=== PATIENT | female | born 1990 | race Two or more races ===

== ENCOUNTER 2024-05-22 12:31 | Emergency (ER) | payer MEDICAID, OTHER ==
[~2024-05-22] VITALS: Ht 160 cm; Wt 72.0 kg
--- NOTE | 2024-05-22 13:09 | ED.PDOC ---
GI ASSESSMENT HPI Comments 34y M who presents to the ED via EMS for chief complaint of nausea and vomiting. Pt states she has been having nasuea and vomiting for the past 3 days. Pt states she has been on new weight loss drug and states she had the medication dosage increased on sunday and states since, she has been having constant nausea and vomiting. Pt states she is also on methadone and states due to her symptoms, she has not been able to keep any medication down for this time period. Pt states she went to clinic where her methadone is dispenced and was told to come to the ED for evaluation. Pt otherwise states she is having chills with associated hot and cold sweats due to her withdrawals. Pt otherwise denies any other symptoms at this time. Chief Complaint: Nausea/Vomiting Time Seen by MD: 13:03 Reviewed Notes: Nurses Notes Information Source: Patient Mode of Arrival: EMS Brought in by: EMS Timing: Days Duration: Since onset Prehospital treatment: None Vomitus: Food Particles, Soft Stool: Normal Severity: Moderate Recent: None Recent Hx of: Other (methadone use) Pain Location: None Modifying Factors: Nothing Associated sign and symptoms: Nausea, Vomiting Past Medical History PAST MEDICAL HISTORY: Denies Surgical History: Denies all surgeries Family History Family History: Family hx of DM, Family hx of Cancer, Family hx of HTN Social History Smoker: Other (vape) Alcohol: Denies ETOH Use Drugs: Denies Drug Use Lives In: Home Constitutional: denies: chills, diaphoresis, fatigue, fever, malaise, sweats, weakness, others EENTM: denies: blurred vision, double vision, ear bleeding, ear discharge, ear drainage, ear pain, ear ringing, eye pain, eye redness, hearing loss, mouth pain, mouth swelling, nasal discharge, nose bleeding, nose congestion, nose pain, photophobia, tearing, throat pain, throat swelling, voice changes, others Respiratory: denies: cough, hemoptysis, orthopnea, SOB at rest, shortness of breath, SOB with excertion, stridor, wheezing, others Cardiovascular: denies: chest pain, dizzy spells, diaphoresis, Dyspnea on exertion, edema, irregular heart beat, left arm pain, lightheadedness, palpitations, PND, syncope, others Gastrointestinal: reports: nausea, vomiting; denies: abdomen distended, abdominal pain, blood streaked bowels, constipated, diarrhea, dysphagia, difficulty swallowing, hematemesis, melena, poor appetite, poor fluid intake, rectal bleeding, rectal pain, others Genitourinary: denies: abnormal vagina bleeding, burning, dyspareunia, dysuria, flank pain, frequency, hematuria, incontinence, pain, , vagina discharge, urgency, others Neurological: denies: dizziness, fainting, headache, left sided numbness, left sided weakness, numbness, paresthesia, pre-existing deficit, right sided numbness, right sided weakness, seizure, speech problems, tingling, tremors, weakness, others Musculoskeletal: denies: back pain, gout, joint pain, joint swelling, muscle pain, muscle stiffness, neck pain, others Integumetry: denies: bruises, change in color, change in hair/nails, dryness, laceration, lesions, lumps, rash, wounds, others Allergic/Immunocompromised: denies: Difficulty Healing, Frequent Infections, Hives, Itching, others Hematologic/Lymphatic: denies: anemia, blood clots, easy bleeding, easy bruising, swollen glands, others Endocrine: denies: excessive hunger, excessive sweating, excessive thirst, excessive urination, flushing, intolerance to cold, intolerance to heat, unexplained weight gain, unexplained weight loss, others Psychiatric: denies: anxiety, bipolar disorder, depression, hopeless, panic disorder, schizophrenia, sleepless, suicidal, others All Other Systems: Reviewed and Negative Physical Exam General Appearance: Mild Distress HEENT: Normal ENT Inspection, Pharynx Normal, TMs Normal Neck: Full Range of Motion, Non-Tender, Normal, Normal Inspection Respiratory: Chest Non-Tender, Lungs Clear, No Accessory Muscle Use, No Respiratory Distress, Normal Breath Sounds Cardiovascular: No Edema, No JVD, No Murmur, No Gallop, Normal Peripheral Pulses, Regular Rate/Rhythm Breast Exam: Deferred Gastrointestinal: Epigastric, No Organomegaly, No Pulsatile Mass, Normal Bowel Sounds, Soft, Tenderness Genitalia: Deferred Pelvic: Deferred Rectal: Deferred Extremities: No calf tenderness, Normal capillary refill, Normal inspection, Normal range of motion, Non-tender, No pedal edema Musculoskeletal : Apperance: Normal Neurologic: Alert, supply chain vice president II-XII nml as Tested, No Motor Deficits, Normal Affect, Normal Mood, No Sensory Deficits Cerebellar Function: Normal Reflexes: Normal Skin: Dry, Normal Color, Warm Lymphatic: No Adenopathy Was a procedure done? Was a procedure done?: No GI differential Dx Differential Diagnosis: Esophagitis, Gastritis/PUD, Gastroenteritis, Pancreatitis, Dehydration, Food Poisoning, Bacterial, Viral Other Differential Diagnosis opiate withdrawal X-Ray, Labs, Meds, VS Vital Signs Date Time Temp Pulse Resp B/P (MAP) Pulse Ox O2 Delivery O2 Flow Rate FiO2 05/22/24 14:10 112 20 109/73 05/22/24 14:05 112 20 100 Room Air* 0 21 05/22/24 14:05 112 20 109/73 (85) 100 05/22/24 12:38 97.9 104 18 111/63 (79) 100 Lab Test 05/22/24 13:12 Range/Units White Blood Count 6.2 4.4-10.8 10^3/uL Red Blood Count 4.27 4.0-5.20 10^6/uL Hemoglobin 13.3 12.2-16.2 g/dL Hematocrit 38.7 36.0-46.0 % Mean Corpuscular Volume 90.8 80.0-100.0 fL Mean Corpuscular Hemoglobin 31.2 28.0-32.0 pg Mean Corpuscular Hemoglobin Concent 34.3 32.0-36.0 g/dL Red Cell Distribution Width 12.7 11.8-14.3 % Platelet Count 315 140-450 10^3/uL Mean Platelet Volume 7.4 6.9-10.8 fL Neutrophils (%) (Auto) 86.0 H 37.0-80.0 % Lymphocytes (%) (Auto) 11.2 10.0-50.0 % Monocytes (%) (Auto) 2.3 0.0-12.0 % Eosinophils (%) (Auto) 0.0 0.0-7.0 % Basophils (%) (Auto) 0.5 0.0-2.0 % Neutrophils # (Auto) 5.3 1.6-8.6 10 ^3/uL Lymphocytes # (Auto) 0.7 0.4-5.4 10 ^3/uL Monocytes # (Auto) 0.1 0-1.3 10 ^3/uL Eosinophils # (Auto) 0 0-0.8 10 ^3/uL Basophils # (Auto) 0 0-0.2 10 ^3/uL Nucleated Red Blood Cells 0.0 % Sodium Level 141 136-145 mmol/L Potassium Level 4.0 3.5-5.1 mmol/L Chloride Level 109 H 98-107 mmol/L Carbon Dioxide Level 25 20-31 mmol/L Anion Gap 7 5-15 Blood Urea Nitrogen 5 L 9-23 mg/dL Creatinine 0.72 0.550-1.02 mg/dL Glomerular Filtration Rate Calc 112 >90 mL/min BUN/Creatinine Ratio 6.9 L 10.0-20.0 Serum Glucose 100 74-106 mg/dL Calcium Level 9.8 8.7-10.4 mg/dL Total Bilirubin 0.4 0.2-1.0 mg/dL Aspartate Amino Transferase (AST) 40 13-40 U/L Alanine Aminotransferase (ALT) 20 7-40 U/L Alkaline Phosphatase 65 46-116 U/L Total Protein 7.1 5.7-8.2 g/dL Albumin 4.4 3.2-4.8 g/dL Lipase 33 12-53 U/L Current Medications Medications (Trade) Dose Ordered Sig/K[place]on Route Start Time Stop Time Status Last Admin Sodium Chloride 1,000 ml @ 1,000 mls/hr Q1H ONCE IVB 05/22/24 13:00 05/22/24 13:59 DC 05/22/24 13:29 Prochlorperazine Edisylate (Compazine Inj) 10 mg ONCE ONCE IV 05/22/24 13:00 05/22/24 13:01 DC 05/22/24 13:55 Pantoprazole Sodium (Protonix) 40 mg ONCE ONCE IV 05/22/24 13:00 05/22/24 13:01 DC 05/22/24 13:55 Morphine Sulfate 4 mg ONCE ONCE IV 05/22/24 14:15 05/22/24 14:16 DC 05/22/24 14:10 IV Hep-Lock was ordered The patient received Compazine 10 mg IV push The patient received Protonix 40 mg IV push The patient also received morphine 4 mg IV push for the pain The CBC and the chemistry panel are within normal limits At this time, the patient will be discharged on Protonix and Zofran The patient will return to the emergency department's the condition worsens. Time of 1ST Reevaluation: 13:35 Reevaluation 1ST: It seems that the patient Patient Education/Counseling: Diagnosis, Treatment, Prognosis, Need For Follow Up Family Education/Counseling: No Family Present Additional Information - I reviewed the following notes from patient's past medical encounters: - The following tests were ordered, and results were reviewed by me: (Labs, X- Ray, EKG): CBC, CMP, lipase, UA, IV fluids, Protonix, prochlorperazine - Additional information was gathered from interviewing the following independent Historian: (Family, Other Providers, EMT): EMS, - I reviewed and agreed with the following test results read by other provider: (X-ray, CT, US): none - I discussed treatments and results with medical personnel and: (consultants, family): none Departure 1 Departure Time of Disposition: 15:04 Impression: Primary Impression: Withdrawal from opioids Additional Impression: Vomiting Qualified Codes: R11.14 - Bilious vomiting Disposition: 07 LEFT AWOL/ELOPED Condition: Fair Critical Care Note Critical Care Time?: No Stability Stability form required: No Heart Score Heart Score: Heart Score Response (Comments) Value History N/A 0 EKG N/A 0 Age N/A 0 Risk Factors N/A 0 Troponin N/A 0 Total 0 I personally scribed for PENNY HEARD MD ([email or web address]) on 05/22/24 at 13:09. Electronically submitted by Sandee Pemberton ([email or web address]). PENNY HEARD MD May 22, 2024 13:09
[2024-05-22] MEDS: SODIUM CHLORIDE 0.9% 1,000 ML IVB ONE (13:29)
[2024-05-22 13:42] LABS: Basophils # (auto) 0 10 ^3/uL (0-0.2); Basophils % (auto) 0.5 % (0.0-2.0); Eosinophils # (auto) 0 10 ^3/uL (0-0.8); Hematocrit 38.7 % (36.0-46.0); Hemoglobin 13.3 g/dL (12.2-16.2); Lymphocytes # (auto) 0.7 10 ^3/uL (0.4-5.4); Lymphocytes % (auto) 11.2 % (10.0-50.0); Mean Corpuscular Hemoglobin 31.2 pg (28.0-32.0); Mean Corpuscular Hgb Conc. 34.3 g/dL (32.0-36.0); Mean Corpuscular Volume 90.8 fL (80.0-100.0); Monocytes # (auto) 0.1 10 ^3/uL (0-1.3); Monocytes % (auto) 2.3 % (0.0-12.0); Neutrophils # (auto) 5.3 10 ^3/uL (1.6-8.6); Platelet Count (auto) 315 10^3/uL (140-450); Red Blood Cells 4.27 10^6/uL (4.0-5.20); Red Cell Distribution Width 12.7 % (11.8-14.3); White Blood Cell 6.2 10^3/uL (4.4-10.8)
[2024-05-22] MEDS: PANTOPRAZOLE 40 MG/10 ML VIAL INJ IV ONE (13:55)
[2024-05-22] MEDS: PROCHLORPERAZINE EDISYLATE 5 MG/ML 2ML VIAL IV ONE (13:55)
[2024-05-22 13:56] LABS: Alanine Aminotransferase 20 U/L (7-40); Albumin 4.4 g/dL (3.2-4.8); Alkaline Phosphatase 65 U/L (46-116); Anion Gap 7 (5-15); BUN/Creatinine Ratio 6.9 (10.0-20.0); Calcium 9.8 mg/dL (8.7-10.4); Carbon Dioxide 25 mmol/L (20-31); Glucose 100 mg/dL (74-106); Lipase 33 U/L (12-53); Sodium 141 mmol/L (136-145)
[2024-05-22 13:57] LABS: Aspartate Aminotransferase 40 U/L (13-40); Bilirubin, Total 0.4 mg/dL (0.2-1.0); Blood Urea Nitrogen 5 mg/dL (9-23); Chloride 109 mmol/L (98-107); Total Protein 7.1 g/dL (5.7-8.2)
[2024-05-22 14:05] VITALS: PULSE 112; RESP 20; O2SAT 100
[2024-05-22] MEDS: MORPHINE SULFATE 4 MG/ML SYR/VIAL ONE (14:07)
[2024-05-22 14:10] VITALS: BP 109/73; PULSE 112; RESP 20
[2024-05-22] MEDS: MORPHINE SULFATE 4 MG/ML SYR/VIAL IV ONE (14:10)
== END 2024-05-22 14:23 | disposition left against medical advice (07) ==
LOC: ER 12:31 → EDBD 12:31 → ER 14:23
DX: F11.93 Opioid use, unspecified with withdrawal (principal); R11.2 Nausea with vomiting, unspecified; F17.290 Nicotine dependence, other tobacco product, uncomplicated
CPT/HCPCS: 36415; 80053; 83690; 85025; 96361; 96374; 96375; 99284; J0780; J2270; J2470; J7030